=== PATIENT | female | born 1960 | race Caucasian/White ===

== ENCOUNTER 2022-06-10 11:22 | Emergency (ER) | payer BC ==
[~2022-06-10] VITALS: Ht 162.6 cm; Wt 74.8 kg
[2022-06-10] MEDS ORDERED: KETOROLAC TROMETHAMINE 30 MG/ML VIAL IV STA (11:53)
[2022-06-10] MEDS ORDERED: SODIUM CHLORIDE 0.9% 1000ML 1,000 ML IV SCH (12:00)
[2022-06-10] MEDS ORDERED: IOPAMIDOL 370 MG/ML 100 ML INFUS..BTL INJ ONE (12:13)
[2022-06-10] MEDS ORDERED: KETOROLAC TROMETHAMINE 30 MG/ML VIAL ONE (12:14)
[2022-06-10] MEDS ORDERED: SODIUM CHLORIDE 0.9% 1000ML 1,000 ML ONE (12:15)
[2022-06-10] MEDS ORDERED: CEFDINIR300 MG PO (13:51)
[2022-06-10] MEDS ORDERED: METRONIDAZOLE500 MG PO (13:53)
[2022-06-10] MEDS ORDERED: DICYCLOMINE HCL20 MG PO (13:54)
== END 2022-06-10 14:07 | disposition home or self-care (01) ==
LOC: FSED 11:34
DX: R10.32 Left lower quadrant pain (principal); K57.32 Diverticulitis of large intestine without perforation or abscess without bleeding; E11.65 Type 2 diabetes mellitus with hyperglycemia; I10 Essential (primary) hypertension; F17.210 Nicotine dependence, cigarettes, uncomplicated
CPT/HCPCS: 74177; 87086; 87186; 99284; J1885; J7030; Q9967

== ENCOUNTER 2022-10-29 17:52 | Emergency (ER) | payer BC ==
[~2022-10-29] VITALS: Ht 162.6 cm; Wt 70.3 kg
[~2022-10-29 17:52] MED LIST: CEFDINIR300 MG PO; DICYCLOMINE HCL20 MG PO; METRONIDAZOLE500 MG PO
[2022-10-29] MEDS ORDERED: ASPIRIN 81 MG CHEW TAB PO ONE (18:15)
[2022-10-29] MEDS ORDERED: FAMOTIDINE 20 MG/2 ML VIAL IV ONE ×2 (18:15→18:36)
[2022-10-29] MEDS ORDERED: NITROGLYCERIN 2% OINT 1 GM PKT TOP ONE ×2 (18:15→20:00)
[2022-10-29] MEDS ORDERED: ACETAMINOPHEN 325 MG TAB PO ONE (18:15)
[2022-10-29] MEDS: METOPROLOL TARTRATE INJ 1 MG/ML VIAL IV SCH ×3 (18:27→18:55)
[2022-10-29] MEDS ORDERED: ASPIRIN 81 MG CHEW TAB ONE (18:35)
[2022-10-29] MEDS ORDERED: POTASSIUM CHLORIDE 20 MEQ TAB CR PO STA (19:56)
[2022-10-29] MEDS ORDERED: HYDRALAZINE HCL 20 MG/ML VIAL IV ONE (20:00)
[2022-10-29] MEDS ORDERED: METOPROLOL TART50 MG PO (20:01)
[2022-10-29] MEDS ORDERED: DIOVAN80 MG PO (20:01)
[2022-10-29 20:27] VITALS: BP 188/84
== END 2022-10-29 20:40 | disposition other institution (70) ==
LOC: FSED 17:59
DX: R00.2 Palpitations (principal); I16.0 Hypertensive urgency; E11.65 Type 2 diabetes mellitus with hyperglycemia; E87.6 Hypokalemia; R94.31 Abnormal electrocardiogram [ECG] [EKG]
CPT/HCPCS: 71046; 80053; 82553; 84484; 85025; 93005; 99284; J0360